=== PATIENT | female | born 1985 | race Caucasian/White ===

== ENCOUNTER 2021-11-21 18:34 | Emergency (ER) | payer MEDICAID ==
[~2021-11-21] VITALS: Ht 157.5 cm; Wt 95.0 kg
[2021-11-21] MEDS ORDERED: TORADOL PO (22:18)
[2021-11-21] MEDS ORDERED: FLEXERIL5 M1 PO (22:20)
[2021-11-21 22:30] VITALS: BP 146/78
== END 2021-11-21 22:35 | disposition home or self-care (01) ==
LOC: ED 18:34
DX: J98.8 Other specified respiratory disorders (principal); B97.89 Other viral agents as the cause of diseases classified elsewhere; F17.210 Nicotine dependence, cigarettes, uncomplicated; Z20.822 Contact with and (suspected) exposure to COVID-19